=== PATIENT | female | born 2000 | race Two or more races ===

== ENCOUNTER 2020-06-24 23:03 | Emergency (ER) | payer OTHER ==
[~2020-06-24] VITALS: Ht 170.2 cm; Wt 69.9 kg
[2020-06-24] MEDS ORDERED: DICLOFENAC SODI75 MG PO (23:32)
== END 2020-06-24 23:52 | disposition home or self-care (01) ==
LOC: ER 23:03
DX: S93.491A Sprain of other ligament of right ankle, initial encounter (principal); W01.198A Fall on same level from slipping, tripping and stumbling with subsequent striking against other object, initial encounter; Y93.89 Activity, other specified; Y92.488 Other paved roadways as the place of occurrence of the external cause; Y99.8 Other external cause status

== ENCOUNTER 2020-09-15 12:35 | Emergency (ER) | payer OTHER ==
[~2020-09-15] VITALS: Ht 170.2 cm; Wt 69.9 kg
[~2020-09-15 12:35] MED LIST: DICLOFENAC SODI75 MG PO
[2020-09-15] MEDS ORDERED: VOLTAREN-XR100 MG PO (16:07)
== END 2020-09-15 17:21 ==
LOC: ER 12:35
DX: M72.2 Plantar fascial fibromatosis (principal)

== ENCOUNTER 2020-11-07 00:30 | Emergency (ER) | payer OTHER ==
[~2020-11-07] VITALS: Ht 170.2 cm; Wt 70.3 kg
[~2020-11-07 00:30] MED LIST changes: +VOLTAREN-XR100 MG PO
[2020-11-07] MEDS ORDERED: KETO10TA2 PO (02:11)
== END 2020-11-07 02:16 | disposition home or self-care (01) ==
LOC: ER 00:30
DX: S90.01XA Contusion of right ankle, initial encounter (principal); S93.491A Sprain of other ligament of right ankle, initial encounter; W50.2XXA Accidental twist by another person, initial encounter; Y93.89 Activity, other specified; Y92.89 Other specified places as the place of occurrence of the external cause; Y99.8 Other external cause status

== ENCOUNTER 2021-03-19 23:28 | Emergency (ER) | payer OTHER ==
[~2021-03-19] VITALS: Ht 165.1 cm; Wt 76.2 kg
[~2021-03-19 23:28] MED LIST changes: +KETO10TA2 PO
[2021-03-20] MEDS ORDERED: KETO10TA2 PO (03:44)
== END 2021-03-20 04:14 ==
LOC: ER 23:28
DX: M25.572 Pain in left ankle and joints of left foot (principal); S93.492S Sprain of other ligament of left ankle, sequela; X50.1XXS Overexertion from prolonged static or awkward postures, sequela

== ENCOUNTER 2022-04-01 20:18 | Emergency (ER) | payer OTHER ==
[~2022-04-01] VITALS: Ht 170.2 cm; Wt 76.2 kg
== END 2022-04-01 23:38 | disposition home or self-care (01) ==
LOC: ER 20:18
DX: G43.909 Migraine, unspecified, not intractable, without status migrainosus (principal); Z20.822 Contact with and (suspected) exposure to COVID-19

== ENCOUNTER → 2023-06-01 | Emergency (ER) | payer OTHER ==
[~2023-06-01] VITALS: Ht 170.2 cm; Wt 79.8 kg
== END | disposition left against medical advice (07) ==
LOC: ER 02:31
DX: T14.90XA Injury, unspecified, initial encounter (principal); V49.9XXA Car occupant (driver) (passenger) injured in unspecified traffic accident, initial encounter; Y93.9 Activity, unspecified; Y92.413 State road as the place of occurrence of the external cause; Y99.9 Unspecified external cause status; Z87.09 Personal history of other diseases of the respiratory system

== ENCOUNTER 2024-04-17 13:29 | Emergency (ER) | payer OTHER ==
[~2024-04-17] VITALS: Ht 170.2 cm; Wt 72.6 kg
[2024-04-17] MEDS ORDERED: KETOROLAC TROMETHAMINE 60 MG VIAL IM ONE ×2 (15:00→15:39)
[2024-04-17] MEDS ORDERED: KETOROLAC TROMETHAMINE 30 MG VIAL ONE (15:39)
[2024-04-17] MEDS ORDERED: FAMOTIDINE/PF 20 MG/2 ML VIAL ONE (15:46)
[2024-04-17 16:48] LABS: HEMATOCRIT 39.9 % (36.0-45.00); HEMOGLOBIN 13.3 g/dL (12.0-15.00); MEAN CELL VOLUME 80.5 fL (80.00-100.00); MEAN CORPUSCULAR HEMOGLOBIN 26.7 pg (27.00-32.0); MEAN CORPUSCULAR HGB CONC 33.2 g/dl (32.0-36.0); PLATELET COUNT 291 K/uL (150-450); RED BLOOD COUNT 4.96 M/uL (4.00-6.00); RED CELL DISTRIBUTION WIDTH 14.1 % (11.5-14.5)
[2024-04-17] MEDS ORDERED: SUMATRIPTAN SUCCINATE 6 MG/0.5 ML VIAL SUBCUTANEO ONE (19:15)
== END 2024-04-17 21:30 | disposition home or self-care (01) ==
LOC: ER 13:30
PROVIDERS: Nurse Practitioner Family
DX: M94.0 Chondrocostal junction syndrome [Tietze] (principal); R51.9 Headache, unspecified; M62.838 Other muscle spasm; J45.909 Unspecified asthma, uncomplicated

== ENCOUNTER 2025-07-11 06:30 | Emergency (ER) | payer OTHER ==
[~2025-07-11] VITALS: Ht 172.7 cm; Wt 79.4 kg
[2025-07-11 07:33] VITALS: BP 105/70; O2SAT 100
[2025-07-11] MEDS ORDERED: NORFLEX100MG PO (08:26)
[2025-07-11] MEDS ORDERED: DICLOFENAC SODI75 MG PO (08:26)
[2025-07-11] MEDS ORDERED: KETOROLAC TROMETHAMINE 30 MG VIAL IM ONE (08:30)
[2025-07-11] MEDS ORDERED: ORPHENADRINE CITRATE 30 MG/ML AMPUL IM ONE (08:30)
== END 2025-07-11 09:11 | disposition home or self-care (01) ==
LOC: ER 06:30
DX: G44.209 Tension-type headache, unspecified, not intractable (principal); M94.0 Chondrocostal junction syndrome [Tietze]; R07.89 Other chest pain; Z87.09 Personal history of other diseases of the respiratory system

== ENCOUNTER 2025-08-17 06:20 | Emergency (ER) | payer OTHER ==
[~2025-08-17] VITALS: Ht 172.7 cm; Wt 81.6 kg
[~2025-08-17 06:20] MED LIST changes: +NORFLEX100MG PO
[2025-08-17] MEDS ORDERED: ONDANSETRON HCL 2 MG/ML VIAL IV STA (07:54)
[2025-08-17] MEDS ORDERED: FAMOTIDINE/PF 20 MG/2 ML VIAL IV STA (07:54)
[2025-08-17] MEDS ORDERED: 0.9 % SODIUM CHLORIDE 1,000 ML IV STA (07:54)
[2025-08-17] MEDS ORDERED: METOCLOPRAMIDE HCL 5 MG/ML VIAL IV ONE (08:00)
[2025-08-17 08:29] LABS: BASO % 0.6 % (0.1-1.2); EOS # 0.20 (0.04-0.54); EOS % 2.2 % (0.7-7.0); LYMPH # 2.82 (1.18-3.74); LYMPH % 30.4 % (19.3-53.1); MEAN PLATELET VOLUME 9.60 fl (9.4-12.4); MONO # 0.63 (0.24-0.82); MONO % 6.8 % (4.7-12.5); NEUT # 5.55 (1.56-6.13); NEUT % 59.8 % (34.0-71.1); RED CELL DISTRIBUTION WIDTH 13.1 % (11.6-14.4)
[2025-08-17 08:51] LABS: BUN CREA RATIO 22.0 (7.0-25.0); CREATININE SERUM 0.78 mg/dL (0.55-1.02); GFR 89.27; GLUCOSE FASTING 96.0 mg/dL (65-100); OSMOLALITY SERUM 281.0 MOSM/KG (275-295)
[2025-08-17 08:52] LABS: INR 1.04
[2025-08-17] MEDS ORDERED: PEPCID AC20 MG PO (12:03)
== END 2025-08-17 15:27 | disposition home or self-care (01) ==
LOC: ER 06:21
PROVIDERS: General Practice
DX: K52.89 Other specified noninfective gastroenteritis and colitis (principal); G44.89 Other headache syndrome; Z87.09 Personal history of other diseases of the respiratory system